=== PATIENT | male | born 1995 | race Caucasian/White ===

== ENCOUNTER 2020-07-13 21:55 | Emergency (ER) | payer SELFPAY ==
[2020-07-13 21:55] VITALS: BP 143/85; PULSE 99; RESP 16; TEMP 36.7; O2SAT 97; BMI 24.4
--- NOTE | 2020-07-13 22:11 | W.ED.ALCOHOL ---
HPI - Alcohol General: Chief Complaint: Alcohol Stated Complaint: ETOH Time Seen by Provider: 07/13/20 21:55 Source: patient and EMS Mode of arrival: EMS Limitations: no limitations History of Present Illness: HPI narrative: 25-year-old male who was found stealing alcohol from [employer] please recall. Patient is quite intoxicated seen to call EMS. Patient here states he has been drinking all day and is intoxicated. He states he recently got out of alcohol rehab. Patient has no other complaints at this time. He denies any suicidal or homicidal ideations. Full history is difficult as he is quite intoxicated. MD complaint: alcohol intoxication Associated symptoms: Deny abdominal pain, depression, nausea or vomiting Review of Systems Const: Denies: fever(s), chills, body aches or change in appetite Eyes: Denies: blurry vision or eye discomfort ENMT: Denies: throat pain or dental pain Card: Denies: chest pain Resp: Denies: dyspnea GI: Denies: abdominal pain, nausea, vomiting or diarrhea : Denies: dysuria Musc: Denies: neck pain or back pain Skin/Breast: Denies: rash Neuro: Denies: headache(s) Psych: Denies: depression Avery/Lymph: Denies: easy bruising All/Imm: Denies: urticaria Physical Exam Const: COMMON NORMALS: no acute distress and patient oriented x3 OTHER: very intoxicated HENMT: COMMON NORMALS: normocephalic and atraumatic HEAD & SCALP: normocephalic and atraumatic Eye: COMMON NORMALS: Equal, round and reactive pupils present and EOMs intact bilaterally PUPIL: Yes Equal, round and reactive pupils present Neck/C-Spine: COMMON NORMALS: full ROM and supple Chest: COMMONS NORMALS: normal inspection of the chest and normal palpation of entire chest wall Resp: COMMON NORMALS: normal respiratory effort, No retractions, No use of accessory muscles and clear to auscultation bilaterally AUSCULTATION: clear to auscultation bilaterally Cardio: COMMON NORMALS: regular rate, regular rhythm and No murmurs present (Cardio) RATE: regular rate RHYTHM: regular rhythm GI: COMMON NORMALS: Normal to inspection, nondistended, normoactive bowel sounds present, Soft to palpation, non-tender and no masses PALPATION: Yes Soft to palpation Extremity: COMMON NORMALS: normal to inspection and full ROM Neuro: COMMON NORMALS: patient oriented x3, moves all extremities and no focal motor deficits Psych: COMMON NORMALS: mental status grossly normal, Normal thought process present and cooperative THOUGHT PROCESS: Normal thought process present Skin: COMMON NORMALS: no rashes or lesions noted and no wounds GENERAL SKIN EXAM: no rashes or lesions noted Course Vital Signs: Vital signs: Vital Signs Temperature 98.1 F 07/13/20 21:55 Pulse Rate 87 07/14/20 03:27 Respiratory Rate 18 07/14/20 03:27 Blood Pressure 148/92 07/14/20 03:27 Pulse Oximetry 98 07/14/20 03:27 MDM - Alcohol MDM Narrative: Medical decision making narrative: Patient presents with alcohol intoxication. Patient is now awake and alert and able to ambulate. He is not suicidal or homicidal. Patient is clinically sober at this point and is stable for discharge. He is to follow-up with PCP and return if worsening. Lab Data: Labs: Lab Results 07/13/20 07/13/20 07/13/20 Range/Units 22:26 22:26 22:40 WBC 8.7 (4.0-10.0) 10^3/ uL RBC 4.97 (4.1-5.3) 10^6/u L Hgb 14.2 (11.7-16.6) g/dL Hct 43.8 (42.0-52.0) % MCV 88.1 (80-94) fL MCH 28.6 (28.0-34.0) pg MCHC 32.4 (30.0-36.0) g/dL RDW 13.7 (12.1-15.1) % Plt Count 160 (130-400) 10^3/c mm MPV 9.8 (7.4-10.4) fL Neut % (Auto) 59.3 % Lymph % (Auto) 28.8 % [place] % (Auto) 10.3 % Eos % (Auto) 0.3 % Baso % (Auto) 1.0 % Neut # (Auto) 5.17 (1.8-7.7) 10^3/u L Lymph # (Auto) 2.5 (0.8-4.8) 10^3/u L [place] # (Auto) 0.9 (0.2-0.9) 10^3/u L Eos # (Auto) 0.0 (0.0-0.8) 10^3/u L Baso # (Auto) 0.1 (0.0-0.1) 10^3/u L Nucleated RBC % (a uto) 0 % Nucleated RBCs # 0.0 /100WBC Sodium 141 (136-145) mmol/L Potassium 3.4 L (3.5-5.1) mmol/L Chloride 103 (98-107) mmol/L Carbon Dioxide 23 (22-29) mmol/L Anion Gap 18.4 (5-19) BUN 9 (6-20) mg/dL Creatinine 0.9 (0.7-1.2) mg/dL GFR Calculation 104.6 (90-130) mL/min Glucose 93 (65-115) mg/dL Calculated Osmolal ity 290 (285-295) mOsm/k g Calcium 8.2 L (8.5-10.5) mg/dL Total Bilirubin 0.5 (0.15-1.2) mg/dL AST 40 (0-40) U/L ALT 19 (0-41) U/L Alkaline Phosphata se 103 (40-130) IU/L Total Protein 8.1 (6.6-8.7) g/dL Albumin 4.5 (3.5-5.2) g/dL Globulin 3.6 (1.3-4.6) g/dL Salicylates < 0.3 L (3-10) mg/dL Urine Opiates Scre en Negative (Negative) ng/mL Acetaminophen < 5.0 L (10-30) ug/mL Ur Barbiturates Sc reen Negative (Negative) ng/mL Ur Phencyclidine S crn Negative (Negative) ng/mL Ur Amphetamines Sc reen Negative (Negative) ng/mL U Benzodiazepines Scrn Positive H (Negative) ng/mL Urine Cocaine Scre en Negative (Negative) ng/mL U Marijuana (THC) Screen Negative (Negative) ng/mL Ethyl Alcohol 325 H* (0-10) mg/dL Discharge Plan Discharge Patient Disposition: Home Clinical Impression: Alcoholic intoxication Qualifiers: Complication of substance-induced condition: uncomplicated Qualified Code(s): F10.920 - Alcohol use, unspecified with intoxication, uncomplicated Condition: Stable Prescriptions: No Action No Known Home Medications RF: 0 Discharge Orders: Discharge ED (Routine); Ordered 07/13/20 Ordered By: Julian Prieto Discharge Diet: Advance as tolerated Discharge Activity: Resume usual activity Patient Instructions: Alcohol Intoxication (ED) Coding Level of Care Code ED [place] [facility] for [facility]ana Fwd Exam Comprehensive
[2020-07-13 22:37] LABS: Basophils # 0.1 10^3/uL (0.0-0.1); Eosinophils % 0.3 %; Hematocrit 43.8 % (42.0-52.0); Hemoglobin 14.2 g/dL (11.7-16.6); Lymphocytes # 2.5 10^3/uL (0.8-4.8); Lymphocytes % 28.8 %; Mean Corpuscular HGB Conc 32.4 g/dL (30.0-36.0); Mean Corpuscular Hemoglobin 28.6 pg (28.0-34.0); Mean Corpuscular Volume 88.1 fL (80-94); Mean Platelet Volume 9.8 fL (7.4-10.4); Monocytes # 0.9 10^3/uL (0.2-0.9); Monocytes % 10.3 %; Neutrophils # 5.17 10^3/uL (1.8-7.7); Neutrophils % 59.3 %; Nucleated Red Blood Cells % 0 %; Platelet Count 160 10^3/cmm (130-400); Red Blood Count 4.97 10^6/uL (4.1-5.3); Red Cell Distribution Width 13.7 % (12.1-15.1); White Blood Count 8.7 10^3/uL (4.0-10.0)
[2020-07-13] MEDS: multivitamin therapeutic Tablet 1 TAB PO (22:37)
[2020-07-13 22:52] VITALS: BP 139/102; PULSE 100; O2SAT 99
[2020-07-13 22:56] LABS: Alanine Aminotransferase 19 U/L (0-41); Albumin Level 4.5 g/dL (3.5-5.2); Alkaline Phosphatase 103 IU/L (40-130); Anion Gap 18.4 (5-19); Aspartate Amino Transferase 40 U/L (0-40); Blood Urea Nitrogen 9 mg/dL (6-20); Calcium 8.2 mg/dL (8.5-10.5); Carbon Dioxide 23 mmol/L (22-29); Chloride 103 mmol/L (98-107); Globulin 3.6 g/dL (1.3-4.6); Glomerular Filtration Rate 104.6 mL/min (90-130); Glucose 93 mg/dL (65-115); Osmolality Calculated 290 mOsm/kg (285-295); Potassium 3.4 mmol/L (3.5-5.1); Sodium 141 mmol/L (136-145); Total Bilirubin 0.5 mg/dL (0.15-1.2); Total Protein 8.1 g/dL (6.6-8.7)
[2020-07-13 23:00] LABS: Acetaminophen < 5.0 ug/mL (10-30); Alcohol Level 325 mg/dL (0-10); Salicylate < 0.3 mg/dL (3-10)
[2020-07-13 23:12] LABS: Amphetamines Screen Urine Negative (Negative); Barbiturates Screen Urine Negative (Negative); Benzodiazepines Screen Urine Positive (Negative); Cocaine Screen Urine Negative (Negative); Opiate Screen Urine Negative (Negative); PCP Screen Urine Negative (Negative); THC Screen Urine Negative (Negative)
[2020-07-14 03:27] VITALS: BP 148/92; PULSE 87; RESP 18; O2SAT 98
== END 2020-07-14 03:27 | disposition home or self-care (01) ==
PROVIDERS: Emergency Provider Emergency Medicine
DX: F10.920 Alcohol use, unspecified with intoxication, uncomplicated (principal); Y90.8 Blood alcohol level of 240 mg/100 ml or more
CPT/HCPCS: 80053; 80306; 80307; 85025; 96372; 99283; J3411